=== PATIENT | female | born 1975 | race Caucasian/White ===

== ENCOUNTER 2016-07-16 16:34 | Emergency (ER) | payer OTHER ==
--- NOTE | ~2016-07-16 | EKG ---
PATIENT: WOOD SIMPSON UNIT #: [id number] Ventricular Rate: 85 BPM Atrial Rate: 85 BPM P-R Interval: 122 ms QRS Duration: 78 ms Q-T Interval: 328 ms QTC Calculation(Bezet): 390 ms P Steele: 76 degrees Calculated R Steele: 90 degrees Calculated T Steele: 64 degrees Diagnosis Line: Normal sinus rhythm with sinus arrhythmia Diagnosis Line: Rightward axis Non Diagnostic Q in Lead Inferior Diagnosis Line: leads Diagnosis Line: Borderline ECG Diagnosis Line: No previous ECGs available Diagnosis Line: Confirmed by TRISTA CONLEY MD ([id number]) on 07/16/2016 Diagnosis Line: 9:24:16 PM INTERPRETING MD: YAEL MERRILL
[2016-07-16 16:06] LABS: BASOPHIL# 0.1 X10e3 (0-0.3); BASOPHIL% 0.7 % (0-2.5); EOSINOPHIL% 0.3 % (0.0-7.0); HEMATOCRIT 39.2 % (35.0-45.0); HEMOGLOBIN 13.1 gm/dL (12.0-16.0); LYMPHOCYTE# 1.5 X10e3 (1.0-3.5); LYMPHOCYTE% 18.5 % (17.0-45.0); MEAN CELL VOLUME 92.6 FL (83-96); MEAN CORPUSCULAR HGB CONC 33.5 g/dL (30-36); MEAN PLATELET VOLUME 8.2 FL (6.5-11.5); MONOCYTE# 0.3 X10e3 (0-1.0); MONOCYTE% 4.1 % (3.0-12.0); NEUTROPHIL% 76.4 % (40-75); PLATELET COUNT 250 X10e3 (140-420); RED BLOOD COUNT 4.23 X10e (3.90-5.30); RED CELL DISTRIBUTION WIDTH 11.9 % (11.0-15.5); WHITE BLOOD COUNT 7.9 X10e3 (4.0-10.5)
[2016-07-16 16:21] LABS: DIFF IND NO
[~2016-07-16 16:34] MED LIST: NUVARING V1 VAG.RING
[2016-07-16 16:35] LABS: BUN/CREATININE RATIO 11.11; CALCIUM SERUM 9.4 mg/dL (8.4-10.2); CREATININE SERUM 0.9 mg/dL (0.6-1.4); GLOM FILT RATE Estimated 81.2 mL/min (>60); POTASSIUM 4.4 mmol/L (3.5-5.1)
== END 2016-07-16 17:50 | disposition home or self-care (01) ==
LOC: CED 16:34
PROVIDERS: Emergency Medicine
DX: F41.1 Generalized anxiety disorder (principal); R53.81 Other malaise; R53.83 Other fatigue; F17.200 Nicotine dependence, unspecified, uncomplicated
CPT/HCPCS: 36415; 80048; 84703; 85025; 93005; 99283